=== PATIENT | female | born 1940 | race Caucasian/White ===

== ENCOUNTER 2017-01-06 05:26 | Inpatient (IN) ==
[~2017-01-06 05:26] MED LIST: EPINEPHrine 0.25 MG, BUPIVACAINE 0.25% PF 30 ML, MORPHINE SULFATE 15 MG, KETOROLAC INJ ... OPSITE ONE
[2017-01-06] MEDS ORDERED: METOCLOPRAMIDE 10mg/2ml INJECTION IVP ONE (06:00)
[2017-01-06] MEDS ORDERED: TRANEXAMIC ACID 1,000 MG in NS 100 ML IV ONE ×2 (06:00→07:00)
[2017-01-06] MEDS ORDERED: ACETAMINOPHEN 500 MG TABLET PO ONE (06:00)
[2017-01-06] MEDS ORDERED: CLINDAMYCIN PB 900 MG/50 ML BAG IV ONE (06:00)
[2017-01-06] MEDS ORDERED: FAMOTIDINE PB 20 MG/50 ML BAG IV ONE (06:00)
[2017-01-06] MEDS ORDERED: ONDANSETRON 4 MG/2 ML INJECTION IVP ONE (06:00)
[2017-01-06] MEDS ORDERED: LIDOCAINE 1% (10mg/ml) 10mL MDV SQ ONE (06:00)
[2017-01-06] MEDS ORDERED: NOZIN NASAL SWAB NAS ONE ×2 (06:00→10:27)
[2017-01-06 06:07] VITALS: BMI 29.4
[2017-01-06] MEDS: LR 1,000 ML IV SCH ×2 (06:26→08:44)
[2017-01-06] MEDS ORDERED: VANCOMYCIN 1,000 MG INJECTION ONE (06:34)
[2017-01-06] MEDS ORDERED: LIDOCAINE 1% (10mg/ml) 2mL INJ PF SDV ID ONE (06:42)
--- NOTE | 2017-01-06 07:08 | Anesthesia Preoperative Report ---
Anesthesia Preoperative Record - Date and Time Date: 01/06/17 Preoperative Diagnosis: M17.11 Rt TKA Proposed Procedure: Right Knee Total Arthroplasty NPO Since Date: 01/05/17 NPO Since Time: 00:00 Allergies/Adverse Reactions: Allergies Allergy/AdvReac Type Severity Reaction Status Date / Time Penicillins Allergy Unknown RASH Verified 01/06/17 05:59 Iodinated Contrast- Oral and AdvReac Unknown IMMEDIATE Verified 01/06/17 05:59 IV Dye VOMITING - Vital Signs Vital Signs: Temperature 97.7 F 01/06/17 06:06 Pulse Rate 61 01/06/17 06:06 Respiratory Rate 14 01/06/17 06:06 Blood Pressure 160/73 H 01/06/17 06:06 Pulse Oximetry 94 01/06/17 06:06 Oxygen Delivery Method Room Air Height and Weight: Height 5 ft 2 in Weight 72.9 kg Body Mass Index 29.4 - Medications Inpatient Medications: Current Medications Epinephrine HCl 0.25 mg/Bupivacaine HCl 30 ml/Morphine Sulfate 15 mg/Ketorolac Tromethamine 60 mg/Sodium Chloride 65.25 mls @ 1 mls/hr OPSITE INTRAOP ONE PRN Reason: Protocol Stop: 01/08/17 08:48 Tranexamic Acid 1,000 mg/ (Sodium Chloride) 110 mls @ 660 mls/hr IV INTRAOP ONE Stop: 01/06/17 07:09 Lactated Ringer's (Lactated Ringers) 1,000 mls @ 50 mls/hr IV .Q20H MARCELLA Last Admin: 01/06/17 06:26 Dose: 50 mls/hr Sodium Chloride (Iv Flush) 10 - 80 ml IVF PRN PRN PRN Reason: Fl[place] Home Medications: Home Medications Medication Instructions Recorded Confirmed Type Escitalopram Oxalate 10 mg PO DAILY #0 10/29/15 01/06/17 History Lisinopril/Hydrochlorothiazide 1 tab PO DAILY #0 10/29/15 01/06/17 History [Lisinopril-Hctz 10-12.5 mg Tab] Metformin HCl 500 mg PO BID #0 10/29/15 01/06/17 History Multivitamin [Multi-Vitamin Daily] 1 tab PO DAILY #0 10/29/15 01/06/17 History Simvastatin 10 mg PO HS #0 10/29/15 01/06/17 History Zinc 50 mg PO DAILY #0 tab 10/29/15 01/06/17 History Tramadol HCl [Ultram] 50 mg PO TID PRN #0 tab 02/04/16 01/06/17 History Aspirin [Aspirin EC] 81 mg PO HS 12/20/16 01/05/17 History Calcium Carbonate/Vitamin D3 1 each PO DAILY 12/20/16 01/06/17 History [Calcium 1,000 + D3 Caplet] Cholecalciferol (Vitamin D3) 1 cap PO DAILY 12/20/16 01/06/17 History [Vitamin D3] Glucosa Dyer 2Kcl/Chondroitin Dyer 1 each PO BID 12/20/16 01/06/17 History [Glucosamine Chondroitin Caplet] [place]-3/Dha/Epa/Fish Oil [Fish Oil 1,000 mg PO BID 12/20/16 01/06/17 History 1,000 mg Softgel] Ubidecarenone/Vit E Acet [Co Q-10 1 each PO DAILY 12/20/16 01/06/17 History 100 mg Softgel] Is Patient on Beta Mary?: No - Medical History Cardiovascular: Reports: Hypertension, High Cholesterol Gastrointestional: Reports: Gastroesophageal Reflux Disease (occasional once a month if anything) Renal/Endocrine: Reports: Diabetes Mellitus Type 2 (on metformin, this am BG 127 ) - Surgical History HEENT Surgeries: Reports: Tonsillectomy GI Surgery/Treatments: Reports: Colonoscopy Surgery/Treatment: REPORT: Other (cysto/dil) Musculoskeletal Surgery/Tx: Reports: Knee Arthroscopy (bilateral), Orthopedic Surgery (CM arthroplasty left thumb) Reproductive Surgery/Treatment: Reports: Hysterectomy, Oophorectomy, Other (Lt breast biopsy) Anesthesia Reactions: None Hx Family Anesthesia Reaction: No History of Motion Sickness: No - Social History Smoking Status: Never smoker Hx Chewing Tobacco Use: No Second Hand Exposure: No Substance Use Type: does not use Alcohol Intake: never - Pertinent Findings Laboratory: CBC and BMP 01/06/17 05:50 EKG Rhythm: Sinus Bradycardia - Physical Exam Respiratory Exam: Present: lungs clear, bilateral breath sounds equal Cardiovascular Exam: Present: regular rate and rhythm, no murmur - Airway Assessment Mallampati Score: III TMD: 3 Fingerbreadths Neck Extension: good Overall Assessment: no airway concerns - ASA ASA Score: 2 - Plan Anesthesia: Neuroaxial Regional/Trunk Block: Spinal Peripheral Nerve Block: Saphenous-Right - Discussion Discussion: Discussed risks/options/alternatives of anesthesia and questions answered. Patient consents. Nursing pain assessment noted. Present for Discussion: spouse Attestation Statement: Prior to the delivery of any anesthetic medication, I examined the patient, developed the plan, obtained the patient's consent and discussed the risk and benefits of the procedure with the patient/guardian. - Additional Information Seen by Anesthesia: Yes
--- NOTE | 2017-01-06 07:09 | History & Physical Update ---
- History and Physical Update Date: 01/06/17 Update: I evaluated this patient and found no changes in the history and clinical exam findings. The treatment plan and recommendations are also unchanged from the previous documentation.
[2017-01-06] MEDS ORDERED: KETAMINE 500 MG/10 ML INJECTION ONE (07:16)
[2017-01-06] MEDS ORDERED: FentaNYL 100 MCG/2 ML INJECTION ONE (07:16)
[2017-01-06] MEDS ORDERED: EPHEDRINE 50mg/ml INJECTION ONE (08:18)
[2017-01-06] MEDS ORDERED: PROPOFOL 500 MG/50 ML VIAL IV ONE (08:26)
--- NOTE | 2017-01-06 09:07 | Operative Note ---
- Procedure Date of Admission: 01/06/17 Side: right Preoperative Diagnosis: knee primary DJD Postoperative Diagnosis: Same as preoperative diagnosis. Operation: total knee arthroplasty Surgeon: Lavon Sloan MD Meeting Facilitator: CHRIS Martinez Complications: None. Regional/Trunk Block: Spinal Peripheral Nerve Block: Saphenous-Right Estimated Blood Loss: See Anesthesia Record. Fluids: Please see Anesthesia Record. Description of Procedure: Mrs. Babin and her right knee were identified and marked in the preoperative holding area. She was brought back to the operating suite and placed supine on the operating table. Spinal anesthetic was administered. The operative lower extremity was prepped and draped in a sterile fashion. Timeout was performed. She had a fixed varus deformity. An anterior midline incision followed by medial parapatellar arthrotomy was performed. The tourniquet was not used until cementing. Hemostasis was obtained with electrocautery. The patella was resurfaced to a size 29. A distal femoral osteotomy was then performed in 5 of valgus using intramedullary guide. The femur was sized at a 4 and rotation set using the epicondylar axis. Distal femoral cuts were performed with a 4-in-1 cutting block. A proximal tibial cut was then made perpendicular to its long axis using an extramedullary guide. At this point remaining meniscus and osteophytes were removed and joint cocktail was injected throughout soft tissue. Trial components were placed with a 9 mm spacer. This was a touch tight so I removed another 2 mm off the tibial cut. This allowed for full extension and flexion and the patella tracked well. The leg was then exsanguinated and the tourniquet inflated to 250 mmHg. The tibia was then stamped at a size 3 at the proper rotation. The bone was then prepared for cementing and Yasmeen Triathalon components were cemented into place and allowed to cure in extension. The tourniquet was then let down and hemostasis obtained with electrocautery. Betadine solution was used during the curing period for 3 minutes. 1 g of vancomycin powder was placed into the joint before the capsulotomy was repaired with #1 Vicryl. I then left my talent assistant close the subcutaneous tissue and skin with 2-0 Vicryl and Monocryl. Dermabond was used on the skin. The drapes were then removed and she was taken to recovery room under the care of anesthesia.
[2017-01-06] MEDS ORDERED: SALINE FLUSH 10ml SYRINGE IVF PRN (09:29)
[2017-01-06] MEDS ORDERED: ROPIVACAINE 0.5% (5mg/ml) 30ml INJ ONE (09:38)
[2017-01-06] MEDS ORDERED: DiphenhydrAMINE 50 MG/ML INJECTION IVP PRN (10:27)
[2017-01-06] MEDS ORDERED: LORazepam 1 MG TABLET PO PRN (10:27)
[2017-01-06] MEDS ORDERED: ONDANSETRON 4 MG/2 ML INJECTION IVP PRN (10:27)
[2017-01-06] MEDS ORDERED: INSULIN ASPART 100unit/ml INJECTION SQ PRN (10:27)
[2017-01-06] MEDS ORDERED: DiphenhydrAMINE 25 MG CAPSULE PO PRN (10:27)
[2017-01-06] MEDS ORDERED: NAPROXEN 220 MG TABLET PO PRN (10:27)
[2017-01-06] MEDS: NS 1,000 ML IV SCH ×2 (10:41→23:57)
--- NOTE | 2017-01-06 11:11 | XRay Report ---
Indication: Post op PROCEDURE: XR knee RT 2V: Encounter: Initial Comparison: Right knee radiographs dated December 15, 2016 Findings: Postoperative changes of right total knee replacement are seen. There is expected postoperative subcutaneous gas. No evidence of hardware failure or acute fracture. No retained radiopaque surgical instruments or sponges. Overlying material causing artifact. Impression: New right total knee prosthesis without evidence of immediate complication. .
[2017-01-06] MEDS: ACETAMINOPHEN 325 MG TABLET PO SCH ×4 (11:57→20:56)
[2017-01-06] MEDS: TRAMADOL 50 MG TABLET PO PRN (11:58)
[2017-01-06] MEDS: CLINDAMYCIN PB 900 MG/50 ML BAG IV SCH ×2 (13:37→20:24)
[2017-01-06] MEDS: NOZIN NASAL SWAB NAS SCH ×3 (13:40→23:58)
--- NOTE | 2017-01-06 15:12 | Anesthesia Postoperative Note ---
- Date and Time Date: 01/06/17 Time: 15:12 - Status Patient Participated in Evaluation: Patient Participated in Person Vital Signs: Temperature 97.7 F 01/06/17 12:00 Pulse Rate 57 L 01/06/17 13:46 Respiratory Rate 16 01/06/17 13:46 Blood Pressure 145/64 H 01/06/17 12:00 Pulse Oximetry 99 01/06/17 13:46 Oxygen Delivery Method Room Air Oxygen Flow Rate 3 Respiratory Function: Airway Patent Cardiovascular Function: Regular Pulse Mental Status: Alert and Oriented Pain Intensity: 2 Hydration: Taking PO Fluids Complications During Recover: None Apparent - Follow-Up Instructions Instructions: Per Surgeon
[2017-01-06] MEDS: SIMVASTATIN 10 MG TABLET PO SCH ×2 (20:56→22:03)
[2017-01-06] MEDS: SENNOSIDES 8.6 MG TABLET PO SCH ×2 (20:56→22:03)
[2017-01-06] MEDS: DOCUSATE SODIUM 100 MG CAPSULE PO SCH (20:56)
[2017-01-06] MEDS: ASPIRIN *EC* 325 MG TABLET PO SCH (20:56)
[2017-01-06] MEDS: OMEGA-3 ACID ESTERS 1 GM CAPSULE PO SCH (20:57)
[2017-01-07] MEDS: CLINDAMYCIN PB 900 MG/50 ML BAG IV SCH (01:29)
[2017-01-07] MEDS: NOZIN NASAL SWAB NAS SCH (05:46)
[2017-01-07] MEDS: TRAMADOL 50 MG TABLET PO PRN (06:43)
[2017-01-07] MEDS ORDERED: HYDROCODONE/APAP 7.5 MG/325 MG TABLET PO PRN (07:50)
--- NOTE | 2017-01-07 07:55 | Orthopedic Progress Note ---
Date: Subjective/Severity of Illness: Theresa is doing well. She feels [place] is better than Tramadol and wishes to switch. Denies feeling SOA or having a cough. Sats dipped a little overnight but she is not symptomatic. She was up yesterday x 3 with good tolerance. No new complaints. Orthopedic Objective PO Vital signs: Temperature 97.7 F 01/07/17 07:41 Pulse Rate 62 01/07/17 07:41 Respiratory Rate 16 01/07/17 07:41 Blood Pressure 145/66 H 01/07/17 07:41 Pulse Oximetry 96 01/07/17 07:41 Oxygen Delivery Method Room Air Oxygen Flow Rate 1 Height and Weight: Height 5 ft 2 in Weight 169 lb 5.04 oz Body Mass Index 29.4 - Constitutional General Appearance: Present: alert, no acute distress - Respiratory Exam Present: non-labored - Cardiovascular Exam Present: pedal pulses intact Capillary Refill: < 2-3 Seconds - Extremities Exam Extremities: Present: pulses intact. Absent: calf tenderness - Surgical Site Incision: Mepilex dressing intact, no drainage - Integumentary Exam Present: pink, warm, dry - Neurological Exam Present: no deficits - Psychiatric Exam Present: alert - Labs Result Diagrams: 01/07/17 04:03 01/07/17 04:03 Abnormal lab results 01/07/17 01/07/17 Range/Units 04:03 04:03 RBC 3.51 L (4.00-5.20) M/MM3 Hgb 11.4 L D (12-16) GM/DL Hct 33.1 L D (36-46) % BUN 26.0 H (7-17) MG/DL BUN/Creatinine Ratio 29 H (6-26) RATIO Glucose 127 H (65-110) MG/DL H & H 01/06/17 01/07/17 Range/Units 05:50 04:03 Hgb 14.3 11.4 L D (12-16) GM/DL Hct 41.2 33.1 L D (36-46) % Orthopedic Assessment and Plan (1) Primary osteoarthritis of both knees Status: Acute Assessment and Plan: Switch to [place] per pt request. Current anti-coagulation protocol for VTE prophylaxis. SCD's. PT/OT services to improve independent function. Discharge Planning per Case Management. Hospital Course Summary Disclaimer: The visit summary below is not to be considered part of the above Progress Note.
--- NOTE | 2017-01-07 07:58 | Discharge Summary ---
Orthopedic Discharge Info Date of admission: 01/06/17 05:26 Anticipated date of discharge: 01/07/17 Primary care physician: Kallie Zheng MD Attending Physician: Aquilino Sloan MD Consults: 01/06/17 05:36 Consult to Anesthesiology [CONS] Routine Consulting Provider: CHRIS Gutierrez Reason For Exam: Preoperative Assessment 01/06/17 10:27 Case Management Consult [CONS] Routine Reason For Exam: Discharge Planning DME-Walker [CONS] Routine Height: 5 ft 2 in Weight: 160 lb 11.472 oz Comment: change dressing in 2 weeks Total Joint Outpatient Therapy [CONS] Routine Comment: change dressing in 2 weeks - Discharge Diagnosis (1) Primary osteoarthritis of both knees Status: Acute - Procedures Procedures: Rt TKA 01/06/17 - Laboratory Result Diagrams: 01/07/17 04:03 01/07/17 04:03 Laboratory: Abnormal lab results 01/07/17 01/07/17 Range/Units 04:03 04:03 RBC 3.51 L (4.00-5.20) M/MM3 Hgb 11.4 L D (12-16) GM/DL Hct 33.1 L D (36-46) % BUN 26.0 H (7-17) MG/DL BUN/Creatinine Ratio 29 H (6-26) RATIO Glucose 127 H (65-110) MG/DL H & H 01/06/17 01/07/17 Range/Units 05:50 04:03 Hgb 14.3 11.4 L D (12-16) GM/DL Hct 41.2 33.1 L D (36-46) % Orthopedic Discharge HPI - HPI Comments This patient was admitted for elective surgical tx of end stage degenerative joint disease that failed to respond to conservative treatment. Further details of this is found in the admission H&P. Orthopedic Hospital Course Hospital course: 01/07/17 07:57 After appropriate preoperative clearance and signing of operative consent, the patient was given IV antibiotics, according to orthopedic protocol. The patient was taken to the operating room and underwent elective right total knee arthroplasty. Following surgery, antibiotics were discontinued less than 24 hours according to joint protocol. Aspirin was initiated and SCDs added for DVT prevention. The dressing was clean, dry, and intact. Pain control was obtained via multimodal approach. Bowel motivation addressed with scheduled and PRN medications. Early mobilization was initiated through PT services. Discharge arrangements made by a collaborative effort between the patient and Case Management. Follow-up is scheduled in 2-3 weeks. Discharge instructions given by orthopedic providers and nursing staff at discharge. Discharge condition was good. Ongoing care required?: No Discharge Plan - Med Rec/Dispo Referrals/Follow Up: Aquilino Sloan MD [Physician] - 01/31/17 8:30 am [email or web address] [facility] [place] Additional Instructions: [facility] ON 01/10/2017 AT 10:15AM FOR PHYSICAL THERAPY EVAL. COMPLE[place] THE PAPER[place] [facility] [facility] PRIOR TO THE APPOINT[place]. PHONE [phone] Prescriptions: New Aspirin *EC* [Ecotrin] 325 mg PO BID #84 tablet Hydrocodone/APAP 7.5/325 [[place] 7.5/325] 1 - 2 tab PO Q6H PRN #60 tablet PRN Reason: Pain Milk of Magnesia [Mom] 30 ml PO DAILY udc Naproxen [Aleve] 440 mg PO BID PRN tablet PRN Reason: Pain Docusate Sodium [Colace] 100 mg PO BID capsule PEG 3350 17gm PACKET [Miralax] 17 gm PO DAILY #1 bottle Continue Metformin HCl 500 mg PO BID #0 Simvastatin 10 mg PO HS #0 Lisinopril/Hydrochlorothiazide [Lisinopril-Hctz 10-12.5 mg Tab] 1 tab PO DAILY #0 Multivitamin [Multi-Vitamin Daily] 1 tab PO DAILY #0 Zinc 50 mg PO DAILY #0 tab Cholecalciferol (Vitamin D3) [Vitamin D3] 1 cap PO DAILY Calcium Carbonate/Vitamin D3 [Calcium 1,000 + D3 Caplet] 1 each PO DAILY Ubidecarenone/Vit E Acet [Co Q-10 100 mg Softgel] 1 each PO DAILY Escitalopram Oxalate 10 mg PO DAILY #0 Glucosa Dyer 2Kcl/Chondroitin Dyer [Glucosamine Chondroitin Caplet] 1 each PO BID [place]-3/Dha/Epa/Fish Oil [Fish Oil 1,000 mg Softgel] 1,000 mg PO BID Discontinued Tramadol HCl [Ultram] 50 mg PO TID PRN #0 tab PRN Reason: PAIN Aspirin [Aspirin EC] 81 mg PO HS - Disposition 01 Discharged Home, Self-Care
[2017-01-07] MEDS ORDERED: METFORMIN 500 MG TABLET PO SCH (08:00)
[2017-01-07] MEDS: ASPIRIN *EC* 325 MG TABLET PO SCH (08:47)
[2017-01-07] MEDS: OMEGA-3 ACID ESTERS 1 GM CAPSULE PO SCH (08:47)
[2017-01-07] MEDS: DOCUSATE SODIUM 100 MG CAPSULE PO SCH (08:47)
[2017-01-07] MEDS ORDERED: LISINOPRIL/HCTZ 10/12.5 MG TABLET PO SCH (09:00)
[2017-01-07] MEDS ORDERED: POLYETHYL GLYCOL 3350 17gm PACKET PO SCH (09:00)
[2017-01-07] MEDS ORDERED: ESCITALOPRAM 10 MG TABLET PO SCH (09:00)
[2017-01-07] MEDS ORDERED: SENNOSIDES 8.6 MG TABLET PO PRN (09:31)
[2017-01-07 11:38] VITALS: BP 133/64; PULSE 66; RESP 18; TEMP 97.2; O2SAT 98
[2017-01-08] MEDS ORDERED: BISACODYL 10 MG SUPPOSITORY RECTALLY SCH (20:00)
== END 2017-01-07 13:10 | disposition home or self-care (01) | DRG 470 ==
LOC: SRG 05:26
PROVIDERS: ADMIT Orthopaedic Surgery; ATTEND Orthopaedic Surgery